=== PATIENT | female | born 1940 | race Caucasian/White ===

== ENCOUNTER 2016-12-09 08:51 | Outpatient (CLI) | payer OTHER ==
--- NOTE | 2016-12-09 10:09 | Diagnostic Imaging Report ---
Indications: Syncope, history of transient ischemic attack Technique: Sagittal and axial T1 weighted FLAIR, axial T2-weighted fat saturated fast spin echo propeller, T2-weighted FLAIR, T2*-weighted gradient echo, and diffusion sequences of the brain were performed without IV gadolinium administration. Findings: Comparison: None Subcentimeter circumscribed focus of signal change/parenchymal loss is present in the right basal ganglia/boykin radiata region. It demonstrates adjacent focal T2 signal hyperintensity as well as peripheral susceptibility artifact on gradient echo images. Similar smaller focus of parenchymal loss is present higher in the right boykin radiata. Multiple small, partially confluent foci of T2 signal hyperintensity are scattered throughout the bilateral periventricular, deep, subcortical white matter. Prominent cavum septi pellucid is present. Ventricles, cisterns, sulci are mildly, diffusely prominent. No evidence of mass or acute hemorrhage, other signal abnormality, mass effect, midline shift, hydrocephalus, or increased intracranial pressure. No restricted diffusion. Central vascular flow voids are preserved. 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
== END 2016-12-09 10:19 | disposition home or self-care (01) ==
LOC: MRI 08:51
DX: R55 Syncope and collapse (principal); Z86.73 Personal history of transient ischemic attack (TIA), and cerebral infarction without residual deficits
CPT/HCPCS: 70551